=== PATIENT | female | born 1935 | race Two or more races ===

== ENCOUNTER → 2016-10-11 | Outpatient (CLI) | payer OTHER ==
[~2016-10-11] MED LIST: ALEN70TA55; AMLO10TA2; ASPI-231; ATORVASTATIN TAB 10MG; BENA40TA2; CLON0.1T; FURO20TA3; LEVO50TA7; METO-159
[2016-10-11 12:09] LABS: Basophils # (auto) 0 uL; Basophils % (auto) 0.3 % (0.0-2.0); Hematocrit 34.6 % (36.0-46.0); Hemoglobin 11.6 g/dL (12.2-16.2); Lymphocytes # (auto) 1.3 uL; Monocytes # (auto) 0.4 uL; Neutrophils # (auto) 4.3 uL; White Blood Cell 6.1 10^3/uL (4.4-10.8)
[2016-10-11 12:27] LABS: Eosinophils # (auto) 0.1 uL; Eosinophils % (auto) 0.9 % (0.0-7.0); Lymphocytes % (auto) 21.7 % (10.0-50.0); Mean Corpuscular Hemoglobin 29.3 pg (28.0-32.0); Mean Corpuscular Hgb Conc. 33.5 g/dL (32.0-36.0); Mean Corpuscular Volume 87.3 fL (80.0-100.0); Mean Platelet Volume 8.6 fL (7.4-10.4); Neutrophils % (auto) 70.1 % (37.0-80.0); Platelet Count (auto) 379 10^3/uL (140-450); Red Cell Distribution Width 16.5 % (11.6-16.0)
[2016-10-11 12:42] LABS: Albumin 2.9 g/dL (3.4-5.0); BUN/Creatinine Ratio 35.3; Bilirubin, Total 0.4 mg/dL (0.2-1.0); Calcium 8.1 mg/dL (8.5-10.1); Potassium 3.7 mmol/L (3.5-5.1); Total Protein 6.5 g/dL (6.4-8.2)
== END | disposition home or self-care (01) ==
LOC: LAB 10:57
PROVIDERS: ATTEND Internal Medicine
DX: D64.9 Anemia, unspecified (principal)
CPT/HCPCS: 36415; 80053; 85025

== ENCOUNTER → 2016-10-31 | Outpatient (CLI) | payer OTHER ==
[~2016-10-31] MED LIST changes: -ASPI-231; +ASPI-231 OR; +CLON0.1T PO; +CYAN100023 PO; -FURO20TA3; +FURO20TA3 OR; +HYDR25TA4 PO; +LEV50T PO; +LOPE1TAB9 PO; +MULTCAP45 PO; +POTA10TA51 PO
[2016-10-31 12:56] LABS: Basophils # (auto) 0 uL; Basophils % (auto) 0.3 % (0.0-2.0); Eosinophils # (auto) 0 uL; Eosinophils % (auto) 0.6 % (0.0-7.0); Hematocrit 31.6 % (36.0-46.0); Hemoglobin 10.6 g/dL (12.2-16.2); Lymphocytes % (auto) 14.2 % (10.0-50.0); Mean Corpuscular Hemoglobin 29.5 pg (28.0-32.0); Mean Corpuscular Hgb Conc. 33.5 g/dL (32.0-36.0); Mean Corpuscular Volume 88.1 fL (80.0-100.0); Monocytes # (auto) 0.5 uL; Neutrophils # (auto) 5.3 uL; Neutrophils % (auto) 77.9 % (37.0-80.0); Platelet Count (auto) 391 10^3/uL (140-450); Red Cell Distribution Width 16.4 % (11.6-16.0); White Blood Cell 6.8 10^3/uL (4.4-10.8)
[2016-10-31 13:18] LABS: INR 1.13 (0.9-1.15); Partial Thromboplastin Time 30.2 sec (22.64-33.71); Prothrombin Time 11.6 sec (9.37-12.3)
== END | disposition home or self-care (01) ==
LOC: LAB 11:53
PROVIDERS: ATTEND Internal Medicine Gastroenterology
DX: Z01.812 Encounter for preprocedural laboratory examination (principal)
CPT/HCPCS: 36415; 85025; 85610; 85730

== ENCOUNTER → 2016-11-03 | Day surgery (SDC) | payer OTHER ==
[~2016-11-03] VITALS: Ht 154.9 cm; Wt 52.2 kg
[~2016-11-03] MED LIST changes: -CLON0.1T; -LEVO50TA7; +LIDOCAINE VISCOUS 2% 15ML UD ONE; +SODIUM CHLORIDE LOCK 10 ML ONE; +diphenhdrAMINE HCL 50 MG/1 ML VL ONE
[2016-11-03] MEDS: fentaNYL CITRATE 100 MCG/2 ML VL ONE ×2 (10:23→10:31)
[2016-11-03] MEDS: MIDAZOLAM HCL 5 MG/ML-1ML VIAL ONE ×2 (10:23→10:31)
[2016-11-03 11:20] VITALS: BP 109/58
== END | disposition home or self-care (01) ==
LOC: GI 09:09
PROVIDERS: ATTEND Internal Medicine Gastroenterology
DX: K57.30 Diverticulosis of large intestine without perforation or abscess without bleeding (principal); K64.8 Other hemorrhoids; K29.60 Other gastritis without bleeding; I50.9 Heart failure, unspecified; J44.9 Chronic obstructive pulmonary disease, unspecified; J45.909 Unspecified asthma, uncomplicated; E11.9 Type 2 diabetes mellitus without complications; Z90.710 Acquired absence of both cervix and uterus; Z87.891 Personal history of nicotine dependence
CPT/HCPCS: 43239; 45378; J2250

== ENCOUNTER 2016-12-12 10:52 | Inpatient (IN) | payer OTHER ==
[~2016-12-12] VITALS: Ht 157.5 cm; Wt 54.3 kg
[~2016-12-12 10:52] MED LIST changes: -LIDOCAINE VISCOUS 2% 15ML UD ONE; -SODIUM CHLORIDE LOCK 10 ML ONE; -diphenhdrAMINE HCL 50 MG/1 ML VL ONE
[2016-12-12 12:00] LABS: Basophils # (auto) 0 uL; Basophils % (auto) 0.3 % (0.0-2.0); Eosinophils # (auto) 0 uL; Hematocrit 37.2 % (36.0-46.0); Hemoglobin 12.3 g/dL (12.2-16.2); Lymphocytes # (auto) 0.7 uL; Lymphocytes % (auto) 13.8 % (10.0-50.0); Mean Corpuscular Hemoglobin 29.2 pg (28.0-32.0); Mean Corpuscular Volume 88.4 fL (80.0-100.0); Mean Platelet Volume 7.9 fL (7.4-10.4); Monocytes # (auto) 0.3 uL; Monocytes % (auto) 5.4 % (0.0-12.0); Neutrophils # (auto) 4.4 uL; Neutrophils % (auto) 80.5 % (37.0-80.0); Platelet Count (auto) 339 10^3/uL (140-450); Red Cell Distribution Width 15.4 % (11.6-16.0); White Blood Cell 5.4 10^3/uL (4.4-10.8)
[2016-12-12] MEDS ORDERED: SODIUM CHLORIDE 0.9% 1,000 ML IV ONE (12:16)
[2016-12-12 12:40] LABS: Calcium 8.1 mg/dL (8.5-10.1)
[2016-12-12 12:48] LABS: Albumin 2.7 g/dL (3.4-5.0); BUN/Creatinine Ratio 29.4; Bilirubin, Total 0.6 mg/dL (0.2-1.0); Magnesium 2.8 mg/dL (1.6-2.6); Total Protein 5.9 g/dL (6.4-8.2)
[2016-12-12 13:04] LABS: Partial Thromboplastin Time 27.1 sec (22.64-33.71)
[2016-12-12 13:05] LABS: INR 1.36 (0.9-1.15); Prothrombin Time 14.7 sec (9.37-12.3)
[2016-12-12 13:35] LABS: Urine Bilirubin Negative (Negative); Urine Blood Negative /uL (Negative); Urine Color Yellow (Yellow); Urine Glucose Normal (Normal); Urine Ketone Negative (Negative); Urine Mucus FEW (None Seen); Urine Nitrite Negative (Negative); Urine RBC 6 /hpf (0 - 4); Urine Squamous Epithelial Cell FEW /hpf (<5); Urine Urobilinogen Normal (Negative)
[2016-12-12 13:40] LABS: B-Type Natriuretic Peptide 155.03 pg/mL (0-100); Temperature: 22.7 C (20.0-25.0)
[2016-12-12 13:59] LABS: Potassium 2.1 mmol/L (3.5-5.1)
[2016-12-12] MEDS ORDERED: cefTRIAXone 1GM/50ML D5W 50 ML IV ONE (14:00)
[2016-12-12] MEDS ORDERED: POTASSIUM CHL 20 Meq TABLET PO ONE ×2 (14:15→15:15)
[2016-12-12] MEDS ORDERED: FUROSEMIDE 20 MG/2 ML VIAL IV ONE (14:30)
[2016-12-12] MEDS ORDERED: ENOXAPARIN SOD 60 MG/0.6 ML SYRINGE SC ONE (14:30)
[2016-12-12] MEDS: POTASSIUM CHL 20MEQ/100ML 100 ML IV SCH ×2 (14:54→16:20)
[2016-12-12] MEDS ORDERED: NITROGLYCERIN 0.4 MG SL TAB SL PRN (15:15)
[2016-12-12] MEDS ORDERED: MORPHINE SULF INJ 2 MG/ML SYRINGE 1ML IV PRN (15:15)
[2016-12-12] MEDS: SOD CHL 0.9%/ KCL 20MEQ 1,000 ML IV SCH (15:40)
[2016-12-12 18:53] VITALS: BP 110/66
[2016-12-12 20:00] VITALS: BP 111/61
[2016-12-12] MEDS: ATORVASTATIN 20 MG TAB PO SCH (21:23)
[2016-12-12 21:41] VITALS: BP 111/61
[2016-12-13] MEDS: SOD CHL 0.9%/ KCL 20MEQ 1,000 ML IV SCH (03:29)
[2016-12-13 04:44] VITALS: BP 105/56
[2016-12-13] MEDS: LEVOTHYROXINE SODIUM 88 MCG TAB PO SCH (06:09)
[2016-12-13 06:26] LABS: Basophils # (auto) 0 uL; Basophils % (auto) 0.3 % (0.0-2.0); Eosinophils # (auto) 0 uL; Eosinophils % (auto) 0.8 % (0.0-7.0); Hematocrit 29.8 % (36.0-46.0); Lymphocytes % (auto) 22.5 % (10.0-50.0); Mean Corpuscular Hemoglobin 29.5 pg (28.0-32.0); Mean Corpuscular Hgb Conc. 33.4 g/dL (32.0-36.0); Mean Corpuscular Volume 88.3 fL (80.0-100.0); Mean Platelet Volume 7.9 fL (7.4-10.4); Monocytes # (auto) 0.4 uL; Monocytes % (auto) 9.8 % (0.0-12.0); Neutrophils # (auto) 2.9 uL; Neutrophils % (auto) 66.6 % (37.0-80.0); Platelet Count (auto) 249 10^3/uL (140-450); White Blood Cell 4.3 10^3/uL (4.4-10.8)
[2016-12-13 06:50] LABS: Calcium 7.1 mg/dL (8.5-10.1); Potassium 3.3 mmol/L (3.5-5.1)
[2016-12-13 06:58] LABS: BUN/Creatinine Ratio 31.4
[2016-12-13 08:10] VITALS: BP 119/60
[2016-12-13] MEDS: cefTRIAXone 1GM/50ML D5W 50 ML IV SCH (08:44)
[2016-12-13] MEDS: ASPirin 81 mg TAB PO SCH (09:13)
[2016-12-13 09:21] VITALS: BP 114/60
[2016-12-13 12:30] VITALS: BP 121/59
[2016-12-13] MEDS: PANTOPRAZOLE 40 MG TAB PO SCH ×2 (15:04→21:28)
[2016-12-13] MEDS: POTASSIUM CHLORIDE 20 MEQ in D5W 5% 1,000 ML IV SCH (15:10)
[2016-12-13 17:14] VITALS: BP 152/65
[2016-12-13] MEDS: ATORVASTATIN 20 MG TAB PO SCH (21:28)
[2016-12-13 22:00] VITALS: BP 114/65
[2016-12-14] VITALS (7 sets, daily range): BP systolic 112–137; BP diastolic 60–74
[2016-12-14] MEDS: POTASSIUM CHLORIDE 20 MEQ in D5W 5% 1,000 ML IV SCH ×2 (03:38→16:59)
[2016-12-14] MEDS: LEVOTHYROXINE SODIUM 88 MCG TAB PO SCH (06:05)
[2016-12-14 06:26] LABS: BUN/Creatinine Ratio 28.8; Calcium 6.7 mg/dL (8.5-10.1); Potassium 3.4 mmol/L (3.5-5.1)
[2016-12-14] MEDS: cefTRIAXone 1GM/50ML D5W 50 ML IV SCH (08:05)
[2016-12-14] MEDS ORDERED: POTASSIUM CHL 20 Meq TABLET PO ONE (09:00)
[2016-12-14] MEDS: ASPirin 81 mg TAB PO SCH (09:30)
[2016-12-14] MEDS: PANTOPRAZOLE 40 MG TAB PO SCH ×2 (09:30→21:53)
[2016-12-14] MEDS: BOOST PLUS 8 ounce PO SCH (19:26)
[2016-12-14] MEDS: ATORVASTATIN 20 MG TAB PO SCH (21:53)
[2016-12-15 05:08] VITALS: BP 119/63
[2016-12-15] MEDS: POTASSIUM CHLORIDE 20 MEQ in D5W 5% 1,000 ML IV SCH (06:02)
[2016-12-15] MEDS: LEVOTHYROXINE SODIUM 88 MCG TAB PO SCH (06:18)
[2016-12-15 09:00] VITALS: BP 122/71
[2016-12-15] MEDS: BOOST PLUS 8 ounce PO SCH ×2 (09:16→12:00)
[2016-12-15] MEDS: cefTRIAXone 1GM/50ML D5W 50 ML IV SCH (09:16)
[2016-12-15] MEDS: ASPirin 81 mg TAB PO SCH (09:16)
[2016-12-15] MEDS: PANTOPRAZOLE 40 MG TAB PO SCH (09:16)
[2016-12-15] MEDS ORDERED: PANT40T PO (09:35)
[2016-12-15 10:35] LABS: BUN/Creatinine Ratio 19.2; Calcium 6.8 mg/dL (8.5-10.1); Potassium 4.5 mmol/L (3.5-5.1)
[2016-12-15 13:00] VITALS: BP 129/75
[2016-12-15] MEDS ORDERED: BOOST 8 ounces PO SCH (14:00)
[2016-12-15 14:11] VITALS: BP 122/71
[2016-12-15 15:29] VITALS: BP 102/75
== END 2016-12-15 17:30 | disposition home or self-care (01) | DRG 640 ==
LOC: ER 10:52 → EDUNIT# 10:53 → TELE 10:53 → TELE-WESTW 18:41
PROVIDERS: ADMIT Internal Medicine; ATTEND Internal Medicine
DX: E87.6 Hypokalemia (principal); I50.43 Acute on chronic combined systolic (congestive) and diastolic (congestive) heart failure; E43 Unspecified severe protein-calorie malnutrition; N17.9 Acute kidney failure, unspecified; N30.00 Acute cystitis without hematuria; I13.0 Hypertensive heart and chronic kidney disease with heart failure and stage 1 through stage 4 chronic kidney disease, or unspecified chronic kidney disease; E11.9 Type 2 diabetes mellitus without complications; R74.8 Abnormal levels of other serum enzymes; R63.4 Abnormal weight loss; I11.0 Hypertensive heart disease with heart failure; E89.0 Postprocedural hypothyroidism; J45.909 Unspecified asthma, uncomplicated; E11.22 Type 2 diabetes mellitus with diabetic chronic kidney disease; E87.0 Hyperosmolality and hypernatremia; K52.9 Noninfective gastroenteritis and colitis, unspecified; N18.9 Chronic kidney disease, unspecified; E86.0 Dehydration; R62.7 Adult failure to thrive; F32.9 Major depressive disorder, single episode, unspecified; B96.81 Helicobacter pylori [H. pylori] as the cause of diseases classified elsewhere; Z68.22 Body mass index [BMI] 22.0-22.9, adult; Z82.49 Family history of ischemic heart disease and other diseases of the circulatory system; Z88.1 Allergy status to other antibiotic agents; Z79.899 Other long term (current) drug therapy
CPT/HCPCS: 36415; 51702; 71010; 74176; 80048; 80053; 81001; 83036; 83605; 83615; 83735; 83880; 84439; 84443; 84481; 84484; 85025; 85610; 85730; 87040; 87045; 87086; 87493; 87899; 93005; 93306; 96361; 96365; 96372; 96375; 97116; 97530; J0696; J3480

== ENCOUNTER → 2017-01-09 | Outpatient (CLI) | payer OTHER ==
[~2017-01-09] MED LIST changes: +PANT40T PO
== END | disposition home or self-care (01) ==
LOC: LAB 12:56
PROVIDERS: ATTEND Internal Medicine Gastroenterology
DX: A04.8 Other specified bacterial intestinal infections (principal)

== ENCOUNTER 2017-01-31 10:02 | Inpatient (IN) | payer OTHER ==
[~2017-01-31] VITALS: Ht 162.6 cm; Wt 49.2 kg
[~2017-01-31 10:02] MED LIST changes: -BENA40TA2; +BENA40TA7
[2017-01-31 11:06] LABS: Basophils # (auto) 0 uL; Basophils % (auto) 0.1 % (0.0-2.0); Eosinophils # (auto) 0 uL; Eosinophils % (auto) 0.1 % (0.0-7.0); Hematocrit 32.8 % (36.0-46.0); Lymphocytes # (auto) 0.4 uL; Mean Corpuscular Hemoglobin 29.5 pg (28.0-32.0); Mean Corpuscular Hgb Conc. 33.6 g/dL (32.0-36.0); Mean Corpuscular Volume 87.8 fL (80.0-100.0); Mean Platelet Volume 7.8 fL (7.4-10.4); Monocytes # (auto) 0.2 uL; Monocytes % (auto) 5.4 % (0.0-12.0); Neutrophils # (auto) 2.8 uL; Neutrophils % (auto) 81.4 % (37.0-80.0); Platelet Count (auto) 340 10^3/uL (140-450); Red Cell Distribution Width 14.5 % (11.6-16.0); White Blood Cell 3.4 10^3/uL (4.4-10.8)
[2017-01-31] MEDS ORDERED: DIPHENOXYLATE W/ATROPINE 2.5 MG TAB PO ONE (11:30)
[2017-01-31] MEDS ORDERED: ONDANSETRON HCL 4 MG/2 ML VIAL IV ONE (11:30)
[2017-01-31 11:45] LABS: Albumin 2.3 g/dL (3.4-5.0); BUN/Creatinine Ratio 25.5; Bilirubin, Total 0.4 mg/dL (0.2-1.0); Calcium 7.3 mg/dL (8.5-10.1); Magnesium 2.6 mg/dL (1.6-2.6); Potassium 3.5 mmol/L (3.5-5.1); Total Protein 5.2 g/dL (6.4-8.2)
[2017-01-31] MEDS ORDERED: SODIUM CHLORIDE 0.9% 1,000 ML IV ONE (12:31)
[2017-01-31] MEDS ORDERED: ENOXAPARIN SOD 60 MG/0.6 ML SYRINGE SC ONE (12:45)
[2017-01-31 13:38] LABS: B-Type Natriuretic Peptide 183.99 pg/mL (0-100)
[2017-01-31 14:40] LABS: Temperature: 22.3 C (20.0-25.0)
[2017-01-31] MEDS ORDERED: cefTRIAXone 1GM/50ML D5W 50 ML IV ONE (14:45)
[2017-01-31] MEDS ORDERED: MORPHINE SULF INJ 2 MG/ML SYRINGE 1ML IV PRN (15:00)
[2017-01-31] MEDS ORDERED: ONDANSETRON HCL 4 MG/2 ML VIAL IV PRN (15:00)
[2017-01-31] MEDS ORDERED: TEMAZEPAM 15 MG CAP PO PRN (15:00)
[2017-01-31] MEDS ORDERED: metroNIDAZOLE 500MG/100ML 100 ML IV ONE (15:30)
[2017-01-31] MEDS: PANTOPRAZOLE SODIUM 40 MG/10 ML VIAL IV SCH ×2 (15:42→22:52)
[2017-01-31] MEDS: SODIUM CHLORIDE 0.9% 1,000 ML IV SCH ×2 (15:43→23:59)
[2017-01-31] MEDS: FAMOTIDINE 20 MG TAB PO SCH ×2 (15:43→22:52)
[2017-01-31 15:49] LABS: INR 1.31 (0.9-1.15); Prothrombin Time 14.3 sec (9.37-12.3)
[2017-01-31] MEDS: InsuLIN REG 1unit/0.01ml Soln (100units/ml) SC SCH ×2 (17:00→22:00)
[2017-01-31] MEDS: ACCU-CHEK COMFORT CURVE STRIP VI SCH ×2 (17:24→22:53)
[2017-01-31] MEDS: Boost Glucose Control 8 Ounces PO SCH ×2 (18:04→22:52)
[2017-01-31 19:40] VITALS: BP 109/57
[2017-01-31 20:00] VITALS: BP 109/57
[2017-01-31 22:00] VITALS: BP 109/57
[2017-01-31] MEDS: CALCIUM CARB 500 MG CHEW TAB PO SCH (22:52)
[2017-01-31] MEDS: metroNIDAZOLE 500MG/100ML 100 ML IV SCH (22:53)
[2017-02-01] MEDS: DEXTROSE (50%) 50ML SYRG IV PRN ×2 (00:06→06:58)
[2017-02-01 05:07] VITALS: BP 98/50
[2017-02-01 06:10] LABS: Basophils # (auto) 0 uL; Basophils % (auto) 0.1 % (0.0-2.0); Eosinophils # (auto) 0 uL; Eosinophils % (auto) 0.4 % (0.0-7.0); Hematocrit 29.6 % (36.0-46.0); Hemoglobin 9.9 g/dL (12.2-16.2); Lymphocytes # (auto) 0.9 uL; Lymphocytes % (auto) 25.5 % (10.0-50.0); Mean Corpuscular Hemoglobin 29.4 pg (28.0-32.0); Mean Corpuscular Hgb Conc. 33.5 g/dL (32.0-36.0); Mean Corpuscular Volume 87.7 fL (80.0-100.0); Mean Platelet Volume 7.8 fL (7.4-10.4); Monocytes # (auto) 0.3 uL; Monocytes % (auto) 8.2 % (0.0-12.0); Neutrophils # (auto) 2.3 uL; Neutrophils % (auto) 65.8 % (37.0-80.0); Platelet Count (auto) 284 10^3/uL (140-450); Red Cell Distribution Width 14.4 % (11.6-16.0); White Blood Cell 3.4 10^3/uL (4.4-10.8)
[2017-02-01 06:41] LABS: Albumin 1.9 g/dL (3.4-5.0); Calcium 6.7 mg/dL (8.5-10.1)
[2017-02-01] MEDS: Boost Glucose Control 8 Ounces PO SCH ×4 (06:43→21:46)
[2017-02-01] MEDS: metroNIDAZOLE 500MG/100ML 100 ML IV SCH (06:43)
[2017-02-01] MEDS: LEVOTHYROXINE SODIUM 25 MCG TAB PO SCH (06:43)
[2017-02-01] MEDS: ACCU-CHEK COMFORT CURVE STRIP VI SCH ×4 (06:44→21:46)
[2017-02-01] MEDS: InsuLIN REG 1unit/0.01ml Soln (100units/ml) SC SCH ×4 (06:52→21:46)
[2017-02-01 07:06] LABS: Bilirubin, Total 0.2 mg/dL (0.2-1.0); Total Protein 4.5 g/dL (6.4-8.2)
[2017-02-01] MEDS: SODIUM CHLORIDE 0.9% 1,000 ML IV SCH (07:27)
[2017-02-01 08:00] VITALS: BP 104/59
[2017-02-01] MEDS ORDERED: PANTOPRAZOLE SODIUM 40 MG/10 ML VIAL IV SCH (10:00)
[2017-02-01] MEDS: CALCIUM CARB 500 MG CHEW TAB PO SCH ×2 (10:06→21:46)
[2017-02-01] MEDS: cefTRIAXone 1GM/50ML D5W 50 ML IV SCH (10:07)
[2017-02-01] MEDS: PANTOPRAZOLE SODIUM 40 MG/10 ML VIAL IV SCH ×2 (10:07→21:46)
[2017-02-01] MEDS: MULTIPLE VITAMIN TAB PO SCH (10:09)
[2017-02-01] MEDS: FERROUS SULFATE 325 MG TAB PO SCH (10:09)
[2017-02-01] MEDS: CYANOCOBALAMIN 500 MCG TAB PO SCH (10:09)
[2017-02-01 12:20] LABS: Urine Bilirubin Negative (Negative); Urine Blood TRACE /uL (Negative); Urine Color Yellow (Yellow); Urine Glucose Normal (Normal); Urine Ketone Negative (Negative); Urine Nitrite Negative (Negative); Urine RBC 2 /hpf (0 - 4); Urine Squamous Epithelial Cell FEW /hpf (<5); Urine Urobilinogen Normal (Negative); Urine pH 5.5 (5.0-8.0)
[2017-02-01] MEDS: SODIUM BICARBONATE 50ML VIAL 50 ML in D5W/SOD CHL 0.45%/KCL 20MEQ 1,000 ML IV SCH (12:20)
[2017-02-01 13:00] VITALS: BP 111/61
[2017-02-01 17:07] VITALS: BP 104/52
[2017-02-01 20:00] VITALS: BP 106/62
[2017-02-01 22:00] VITALS: BP 106/62
[2017-02-02] MEDS: SODIUM BICARBONATE 50ML VIAL 50 ML in D5W/SOD CHL 0.45%/KCL 20MEQ 1,000 ML IV SCH ×4 (03:22→22:44)
[2017-02-02 05:00] VITALS: BP 112/57
[2017-02-02] MEDS: Boost Glucose Control 8 Ounces PO SCH (05:58)
[2017-02-02] MEDS: InsuLIN REG 1unit/0.01ml Soln (100units/ml) SC SCH ×4 (06:35→22:05)
[2017-02-02] MEDS: LEVOTHYROXINE SODIUM 25 MCG TAB PO SCH (06:35)
[2017-02-02] MEDS: ACCU-CHEK COMFORT CURVE STRIP VI SCH ×4 (06:35→22:05)
[2017-02-02 06:38] LABS: Basophils # (auto) 0 uL; Basophils % (auto) 0.3 % (0.0-2.0); CONDITION Y; Eosinophils # (auto) 0 uL; Eosinophils % (auto) 0.6 % (0.0-7.0); Hematocrit 26.7 % (36.0-46.0); Hemoglobin 9.3 g/dL (12.2-16.2); Lymphocytes # (auto) 0.9 uL; Lymphocytes % (auto) 27.3 % (10.0-50.0); Mean Corpuscular Hemoglobin 30.4 pg (28.0-32.0); Mean Corpuscular Hgb Conc. 34.9 g/dL (32.0-36.0); Mean Corpuscular Volume 86.9 fL (80.0-100.0); Mean Platelet Volume 7.5 fL (7.4-10.4); Monocytes # (auto) 0.3 uL; Monocytes % (auto) 7.8 % (0.0-12.0); Neutrophils # (auto) 2.1 uL; Platelet Count (auto) 255 10^3/uL (140-450); Red Cell Distribution Width 14.7 % (11.6-16.0); White Blood Cell 3.3 10^3/uL (4.4-10.8)
[2017-02-02 07:36] LABS: Albumin 1.8 g/dL (3.4-5.0); Calcium 6.5 mg/dL (8.5-10.1)
[2017-02-02 07:38] LABS: BUN/Creatinine Ratio 25.8
[2017-02-02 07:41] LABS: Bilirubin, Total 0.2 mg/dL (0.2-1.0); Total Protein 4.2 g/dL (6.4-8.2)
[2017-02-02 09:00] VITALS: BP 125/67
[2017-02-02] MEDS ORDERED: POTASSIUM CHLORIDE 20 MEQ, LIDOCAINE 1% (LOCAL ANESTH.) 2 ML in SODIUM CHL 0.9% 100 ML IV ONE (09:30)
[2017-02-02] MEDS: PANTOPRAZOLE SODIUM 40 MG/10 ML VIAL IV SCH ×2 (10:27→22:05)
[2017-02-02] MEDS: cefTRIAXone 1GM/50ML D5W 50 ML IV SCH (10:27)
[2017-02-02] MEDS: FERROUS SULFATE 325 MG TAB PO SCH (10:28)
[2017-02-02] MEDS: CALCIUM CARB 500 MG CHEW TAB PO SCH ×2 (10:28→22:05)
[2017-02-02] MEDS: MULTIPLE VITAMIN TAB PO SCH (10:28)
[2017-02-02] MEDS ORDERED: METOCLOPRAMIDE HCL 5MG/ml INJ 2ml VIAL IV SCH ×2 (10:45→14:00)
[2017-02-02] MEDS: CYANOCOBALAMIN 500 MCG TAB PO SCH (10:46)
[2017-02-02] MEDS ORDERED: Boost Glucose Control 8 Ounces PO SCH (12:00)
[2017-02-02] MEDS: Boost Breeze 8 Ounces PO SCH ×2 (12:23→18:46)
[2017-02-02 13:00] VITALS: BP 104/66
[2017-02-02] MEDS: SODIUM CHL 0.9% IV SCH ×2 (13:00→14:00)
[2017-02-02] MEDS: METOCLOPRAMIDE IV SCH ×2 (13:00→14:00)
[2017-02-02] MEDS ORDERED: POTASSIUM CHL 20 Meq TABLET PO ONE (13:30)
[2017-02-02] MEDS ORDERED: METOCLOPRAMIDE HCL 10 MG TAB PO PRN (16:30)
[2017-02-02] MEDS: METOCLOPRAMIDE HCL 10 MG TAB PO SCH (17:24)
[2017-02-02] MEDS: PRO-STAT 64 30ML PO SCH (18:46)
[2017-02-02 20:00] VITALS: BP 101/61
[2017-02-02 22:00] VITALS: BP 101/61
[2017-02-03] VITALS (7 sets, daily range): BP systolic 103–132; BP diastolic 58–74
[2017-02-03] MEDS: ACETAMINOPHEN 325 MG TAB PO PRN (01:01)
[2017-02-03] MEDS: LEVOTHYROXINE SODIUM 25 MCG TAB PO SCH (06:39)
[2017-02-03] MEDS: METOCLOPRAMIDE HCL 10 MG TAB PO SCH (06:40)
[2017-02-03] MEDS: InsuLIN REG 1unit/0.01ml Soln (100units/ml) SC SCH ×4 (06:40→21:45)
[2017-02-03] MEDS: ACCU-CHEK COMFORT CURVE STRIP VI SCH ×4 (06:40→21:45)
[2017-02-03 07:18] LABS: BUN/Creatinine Ratio 26.4; Bilirubin, Total 0.3 mg/dL (0.2-1.0); Calcium 6.7 mg/dL (8.5-10.1); Total Protein 4.5 g/dL (6.4-8.2)
[2017-02-03] MEDS: PRO-STAT 64 30ML PO SCH ×2 (08:00→18:00)
[2017-02-03] MEDS: Boost Breeze 8 Ounces PO SCH ×3 (08:00→18:00)
[2017-02-03] MEDS: cefTRIAXone 1GM/50ML D5W 50 ML IV SCH (09:26)
[2017-02-03] MEDS: MULTIPLE VITAMIN TAB PO SCH (09:27)
[2017-02-03] MEDS: FERROUS SULFATE 325 MG TAB PO SCH (09:27)
[2017-02-03] MEDS: CALCIUM CARB 500 MG CHEW TAB PO SCH ×2 (09:27→21:45)
[2017-02-03] MEDS: PANTOPRAZOLE SODIUM 40 MG/10 ML VIAL IV SCH ×2 (09:27→21:45)
[2017-02-03] MEDS: CYANOCOBALAMIN 500 MCG TAB PO SCH (09:38)
[2017-02-03] MEDS: ERYTHROMYCIN LACTOBIONATE 250 MG in SODIUM CHL 0.9% 100 ML IV SCH (12:01)
[2017-02-03] MEDS: SODIUM BICARBONATE 50ML VIAL 50 ML in D5W/SOD CHL 0.45%/KCL 20MEQ 1,000 ML IV SCH ×2 (13:25→23:27)
[2017-02-04] MEDS: ACETAMINOPHEN 325 MG TAB PO PRN (01:25)
[2017-02-04 04:06] LABS: Endomysial IgA Antibody Negative (Negative)
[2017-02-04 05:00] VITALS: BP 108/66
[2017-02-04 06:08] LABS: Basophils # (auto) 0 uL; Basophils % (auto) 0.1 % (0.0-2.0); CONDITION AutoValidated; DEFINITIVE SEE PRINTOUT; Eosinophils # (auto) 0 uL; Eosinophils % (auto) 0.3 % (0.0-7.0); Hematocrit 24.9 % (36.0-46.0); Hemoglobin 8.4 g/dL (12.2-16.2); Lymphocytes # (auto) 0.6 uL; Lymphocytes % (auto) 11.4 % (10.0-50.0); Mean Corpuscular Hemoglobin 29.5 pg (28.0-32.0); Mean Corpuscular Hgb Conc. 33.8 g/dL (32.0-36.0); Mean Corpuscular Volume 87.2 fL (80.0-100.0); Mean Platelet Volume 7.8 fL (7.4-10.4); Monocytes # (auto) 0.2 uL; Monocytes % (auto) 4.2 % (0.0-12.0); Neutrophils # (auto) 4.1 uL; Platelet Count (auto) 197 10^3/uL (140-450); White Blood Cell 4.9 10^3/uL (4.4-10.8)
[2017-02-04] MEDS: LEVOTHYROXINE SODIUM 25 MCG TAB PO SCH (06:47)
[2017-02-04] MEDS: InsuLIN REG 1unit/0.01ml Soln (100units/ml) SC SCH ×4 (06:47→22:00)
[2017-02-04] MEDS: ACCU-CHEK COMFORT CURVE STRIP VI SCH ×4 (06:47→22:00)
[2017-02-04 07:19] LABS: Albumin 1.5 g/dL (3.4-5.0); BUN/Creatinine Ratio 23.1; Calcium 6.4 mg/dL (8.5-10.1); Potassium 4.2 mmol/L (3.5-5.1)
[2017-02-04 07:22] LABS: Bilirubin, Total 0.3 mg/dL (0.2-1.0); Total Protein 3.8 g/dL (6.4-8.2)
[2017-02-04] MEDS: Boost Breeze 8 Ounces PO SCH ×3 (08:00→18:00)
[2017-02-04] MEDS: PRO-STAT 64 30ML PO SCH ×2 (08:00→18:00)
[2017-02-04] MEDS: SODIUM BICARBONATE 50ML VIAL 50 ML in D5W/SOD CHL 0.45%/KCL 20MEQ 1,000 ML IV SCH ×2 (08:23→22:34)
[2017-02-04 09:00] VITALS: BP 114/74
[2017-02-04] MEDS: PANTOPRAZOLE SODIUM 40 MG/10 ML VIAL IV SCH ×3 (10:00→21:51)
[2017-02-04] MEDS: MULTIPLE VITAMIN TAB PO SCH (10:00)
[2017-02-04] MEDS: CALCIUM CARB 500 MG CHEW TAB PO SCH ×2 (10:00→21:50)
[2017-02-04] MEDS: FERROUS SULFATE 325 MG TAB PO SCH (10:00)
[2017-02-04] MEDS: CYANOCOBALAMIN 500 MCG TAB PO SCH (10:00)
[2017-02-04] MEDS: ERYTHROMYCIN LACTOBIONATE 250 MG in SODIUM CHL 0.9% 100 ML IV SCH (12:06)
[2017-02-04 13:00] VITALS: BP 122/65
[2017-02-04 16:48] VITALS: BP 115/66
[2017-02-04 20:06] LABS: Vitamin D 25-Hydroxy 38 ng/mL (.); Vitamin D-2 25-Hydroxy <1.0 ng/mL (.)
[2017-02-04 22:00] VITALS: BP 115/70
[2017-02-05 06:08] VITALS: BP 109/72
[2017-02-05 06:28] LABS: Potassium 4.4 mmol/L (3.5-5.1)
[2017-02-05 06:31] LABS: Albumin 1.6 g/dL (3.4-5.0); BUN/Creatinine Ratio 23.1; Calcium 6.8 mg/dL (8.5-10.1)
[2017-02-05] MEDS: ACCU-CHEK COMFORT CURVE STRIP VI SCH ×4 (06:36→22:28)
[2017-02-05] MEDS: InsuLIN REG 1unit/0.01ml Soln (100units/ml) SC SCH ×4 (06:36→22:00)
[2017-02-05] MEDS: LEVOTHYROXINE SODIUM 25 MCG TAB PO SCH (06:36)
[2017-02-05 06:53] LABS: Bilirubin, Total 0.2 mg/dL (0.2-1.0); Total Protein 4.1 g/dL (6.4-8.2)
[2017-02-05 08:00] VITALS: BP 134/54
[2017-02-05] MEDS: PRO-STAT 64 30ML PO SCH ×2 (08:00→18:00)
[2017-02-05] MEDS: Boost Breeze 8 Ounces PO SCH (08:00)
[2017-02-05 09:00] VITALS: BP 96/54
[2017-02-05] MEDS: ERYTHROMYCIN LACTOBIONATE 250 MG in SODIUM CHL 0.9% 100 ML IV SCH (10:00)
[2017-02-05] MEDS: MULTIPLE VITAMIN TAB PO SCH (11:04)
[2017-02-05] MEDS: FERROUS SULFATE 325 MG TAB PO SCH (11:04)
[2017-02-05] MEDS: PANTOPRAZOLE SODIUM 40 MG/10 ML VIAL IV SCH ×2 (11:04→21:25)
[2017-02-05] MEDS: HYDROcodone-ACET 5/325MG TAB PO PRN (11:04)
[2017-02-05] MEDS: CALCIUM CARB 500 MG CHEW TAB PO SCH ×2 (11:05→21:25)
[2017-02-05] MEDS: SODIUM BICARBONATE 50ML VIAL 50 ML in D5W/SOD CHL 0.45%/KCL 20MEQ 1,000 ML IV SCH (12:23)
[2017-02-05 13:00] VITALS: BP 119/73
[2017-02-05] MEDS: CYANOCOBALAMIN 500 MCG TAB PO SCH (14:35)
[2017-02-05] MEDS ORDERED: SODIUM CHLORIDE 0.9% 1,000 ML IV SCH (15:30)
[2017-02-05 17:00] VITALS: BP 121/72
[2017-02-05] MEDS: BOOST PLUS 8 ounce PO SCH (18:00)
[2017-02-05 22:00] VITALS: BP 101/56
[2017-02-06 05:00] VITALS: BP 118/57
[2017-02-06 06:36] LABS: Hematocrit 27.4 % (36.0-46.0); Hemoglobin 9.1 g/dL (12.2-16.2)
[2017-02-06] MEDS: InsuLIN REG 1unit/0.01ml Soln (100units/ml) SC SCH ×4 (06:37→22:00)
[2017-02-06] MEDS: ACCU-CHEK COMFORT CURVE STRIP VI SCH ×4 (06:37→22:00)
[2017-02-06] MEDS: LEVOTHYROXINE SODIUM 25 MCG TAB PO SCH (06:38)
[2017-02-06 07:02] LABS: BUN/Creatinine Ratio 27.8; Potassium 4.2 mmol/L (3.5-5.1)
[2017-02-06 08:00] VITALS: BP 105/59
[2017-02-06] MEDS: BOOST PLUS 8 ounce PO SCH ×3 (08:00→18:00)
[2017-02-06] MEDS: PRO-STAT 64 30ML PO SCH ×2 (08:00→18:00)
[2017-02-06 08:57] VITALS: BP 105/59
[2017-02-06] MEDS: PANTOPRAZOLE SODIUM 40 MG/10 ML VIAL IV SCH ×2 (10:17→21:19)
[2017-02-06] MEDS: CALCIUM CARB 500 MG CHEW TAB PO SCH ×2 (10:18→21:19)
[2017-02-06] MEDS: FERROUS SULFATE 325 MG TAB PO SCH (10:18)
[2017-02-06] MEDS: MULTIPLE VITAMIN TAB PO SCH (10:18)
[2017-02-06] MEDS: CYANOCOBALAMIN 500 MCG TAB PO SCH (10:18)
[2017-02-06] MEDS: SOD CHL 0.45% 1,000 ML IV SCH (12:15)
[2017-02-06 12:36] VITALS: BP 108/64
[2017-02-06 17:00] VITALS: BP 143/80
[2017-02-06 22:01] VITALS: BP 127/78
[2017-02-07] MEDS: SOD CHL 0.45% 1,000 ML IV SCH (01:35)
[2017-02-07 05:17] VITALS: BP 123/71
[2017-02-07] MEDS: InsuLIN REG 1unit/0.01ml Soln (100units/ml) SC SCH ×4 (06:30→22:07)
[2017-02-07] MEDS: LEVOTHYROXINE SODIUM 25 MCG TAB PO SCH (06:30)
[2017-02-07] MEDS: ACCU-CHEK COMFORT CURVE STRIP VI SCH ×4 (06:30→22:07)
[2017-02-07 07:27] LABS: BUN/Creatinine Ratio 26.5; Calcium 7.1 mg/dL (8.5-10.1); Potassium 3.6 mmol/L (3.5-5.1)
[2017-02-07] MEDS: FERROUS SULFATE 325 MG TAB PO SCH (09:39)
[2017-02-07] MEDS: CALCIUM CARB 500 MG CHEW TAB PO SCH ×2 (09:39→21:23)
[2017-02-07] MEDS: PANTOPRAZOLE SODIUM 40 MG/10 ML VIAL IV SCH (09:39)
[2017-02-07] MEDS: CYANOCOBALAMIN 500 MCG TAB PO SCH (09:40)
[2017-02-07] MEDS: MULTIPLE VITAMIN TAB PO SCH (09:40)
[2017-02-07] MEDS: PRO-STAT 64 30ML PO SCH ×2 (09:42→18:00)
[2017-02-07] MEDS: BOOST PLUS 8 ounce PO SCH ×3 (09:42→18:00)
[2017-02-07] MEDS ORDERED: DONNATAL 5ml ORAL Elix (BELLADONNA ALK-PHENOBARB) PO PRN (10:45)
[2017-02-07] MEDS ORDERED: ENOXAPARIN SOD 40 MG/0.4 ML SYRINGE SC ONE (10:45)
[2017-02-07 12:47] VITALS: BP 126/70
[2017-02-07 16:47] VITALS: BP 121/76
[2017-02-07] MEDS: HYDROcodone-ACET 5/325MG TAB PO PRN (20:00)
[2017-02-07 22:00] VITALS: BP 108/58
[2017-02-08 04:46] VITALS: BP 108/63
[2017-02-08] MEDS: ACCU-CHEK COMFORT CURVE STRIP VI SCH ×2 (06:05→11:47)
[2017-02-08] MEDS: InsuLIN REG 1unit/0.01ml Soln (100units/ml) SC SCH ×2 (06:05→11:30)
[2017-02-08] MEDS: LEVOTHYROXINE SODIUM 25 MCG TAB PO SCH (06:05)
[2017-02-08 09:00] VITALS: BP 116/67
[2017-02-08] MEDS ORDERED: BELLELX2 PO (09:08)
[2017-02-08] MEDS ORDERED: PANT40T PO (09:08)
[2017-02-08] MEDS ORDERED: MULTTAB99 PO (09:08)
[2017-02-08] MEDS ORDERED: FER325T PO (09:08)
[2017-02-08] MEDS ORDERED: POTASSIUM CHL 20 Meq TABLET PO ONE (09:15)
[2017-02-08] MEDS ORDERED: FUROSEMIDE 40 MG/4 ML VIAL IV ONE (09:15)
[2017-02-08] MEDS: CALCIUM CARB 500 MG CHEW TAB PO SCH (09:39)
[2017-02-08] MEDS: MULTIPLE VITAMIN TAB PO SCH (09:40)
[2017-02-08] MEDS: FERROUS SULFATE 325 MG TAB PO SCH (09:40)
[2017-02-08] MEDS: ALBUMIN 25% 100 ML IV SCH ×2 (09:40→11:46)
[2017-02-08] MEDS: CYANOCOBALAMIN 500 MCG TAB PO SCH (09:40)
[2017-02-08] MEDS: BOOST PLUS 8 ounce PO SCH ×2 (09:41→12:00)
[2017-02-08] MEDS: PRO-STAT 64 30ML PO SCH (09:41)
[2017-02-08] MEDS ORDERED: PANTOPRAZOLE 40 MG TAB PO SCH (10:00)
[2017-02-08] MEDS ORDERED: ENOXAPARIN SOD 40 MG/0.4 ML SYRINGE SC SCH (10:00)
[2017-02-08 13:00] VITALS: BP 121/65
== END 2017-02-08 15:50 | disposition home or self-care (01) | DRG 73 ==
LOC: ER 10:02 → EDBD 10:02 → OVERFLOW 10:03 → WEST WING 19:40 → TELE-WESTW 02-03 17:22 → WEST WING 02-03 20:31
PROVIDERS: ADMIT Internal Medicine; ATTEND Internal Medicine
DX: E11.43 Type 2 diabetes mellitus with diabetic autonomic (poly)neuropathy (principal); E43 Unspecified severe protein-calorie malnutrition; N17.0 Acute kidney failure with tubular necrosis; J96.90 Respiratory failure, unspecified, unspecified whether with hypoxia or hypercapnia; I13.0 Hypertensive heart and chronic kidney disease with heart failure and stage 1 through stage 4 chronic kidney disease, or unspecified chronic kidney disease; N18.4 Chronic kidney disease, stage 4 (severe); E87.1 Hypo-osmolality and hyponatremia; K92.2 Gastrointestinal hemorrhage, unspecified; N39.0 Urinary tract infection, site not specified; E87.2 Acidosis; Z68.1 Body mass index [BMI] 19.9 or less, adult; E03.9 Hypothyroidism, unspecified; E11.21 Type 2 diabetes mellitus with diabetic nephropathy; E78.5 Hyperlipidemia, unspecified; E11.22 Type 2 diabetes mellitus with diabetic chronic kidney disease; K82.8 Other specified diseases of gallbladder; E11.649 Type 2 diabetes mellitus with hypoglycemia without coma; E87.6 Hypokalemia; E86.0 Dehydration; F32.9 Major depressive disorder, single episode, unspecified; I34.0 Nonrheumatic mitral (valve) insufficiency; G89.29 Other chronic pain; I50.9 Heart failure, unspecified; D63.8 Anemia in other chronic diseases classified elsewhere; E83.51 Hypocalcemia; K31.84 Gastroparesis; I95.9 Hypotension, unspecified; J45.909 Unspecified asthma, uncomplicated; N28.1 Cyst of kidney, acquired; Z82.49 Family history of ischemic heart disease and other diseases of the circulatory system; Z88.1 Allergy status to other antibiotic agents; Z90.710 Acquired absence of both cervix and uterus; Z86.19 Personal history of other infectious and parasitic diseases
CPT/HCPCS: 36415; 71010; 76705; 78264; 80048; 80053; 81001; 82270; 82306; 82570; 82784; 82962; 83036; 83516; 83690; 83735; 83880; 83970; 84156; 84300; 84443; 84484; 85014; 85018; 85025; 85610; 86255; 87040; 87045; 87493; 87899; 93005; 93970; 96372; 96374; 96375; 97110; 97116; 97163; 97530; C9113; J0696; J1815; J2001; J2405; J3490

== ENCOUNTER 2017-04-04 16:44 | Emergency (ER) | payer OTHER ==
[~2017-04-04] VITALS: Ht 157.5 cm; Wt 51.3 kg
[~2017-04-04 16:44] MED LIST changes: -AMLO10TA2; -ATORVASTATIN TAB 10MG; +BELLELX2 PO; -BENA40TA7; -CLON0.1T PO; +FER325T PO; -FURO20TA3 OR; -HYDR25TA4 PO; -METO-159; +MULTTAB99 PO
[2017-04-04] MEDS ORDERED: SODIUM CHLORIDE 0.9% 1,000 ML IV ONE (19:45)
[2017-04-04 20:45] LABS: Basophils # (auto) 0 uL; Basophils % (auto) 0.2 % (0.0-2.0); CONDITION Y; Eosinophils # (auto) 0 uL; Hematocrit 25.8 % (36.0-46.0); Hemoglobin 8.6 g/dL (12.2-16.2); Lymphocytes # (auto) 0.7 uL; Lymphocytes % (auto) 16.2 % (10.0-50.0); Mean Corpuscular Hemoglobin 29.4 pg (28.0-32.0); Mean Corpuscular Hgb Conc. 33.5 g/dL (32.0-36.0); Mean Corpuscular Volume 87.6 fL (80.0-100.0); Mean Platelet Volume 7.6 fL (7.4-10.4); Monocytes # (auto) 0.2 uL; Monocytes % (auto) 5.1 % (0.0-12.0); Neutrophils # (auto) 3.2 uL; Neutrophils % (auto) 78.5 % (37.0-80.0); Platelet Count (auto) 314 10^3/uL (140-450); Red Cell Distribution Width 16.3 % (11.6-16.0)
[2017-04-04 21:10] LABS: BUN/Creatinine Ratio 16.7; Calcium 7.4 mg/dL (8.5-10.1); Potassium 4.8 mmol/L (3.5-5.1)
[2017-04-04 21:13] LABS: Bilirubin, Total 0.6 mg/dL (0.2-1.0); Total Protein 4.8 g/dL (6.4-8.2)
[2017-04-04 21:45] VITALS: BP 109/60
== END 2017-04-04 21:59 | disposition home or self-care (01) ==
LOC: ER 16:46 → EDUNIT# 16:46 → ER 21:59
DX: I95.9 Hypotension, unspecified (principal); E78.5 Hyperlipidemia, unspecified; I13.0 Hypertensive heart and chronic kidney disease with heart failure and stage 1 through stage 4 chronic kidney disease, or unspecified chronic kidney disease; E11.22 Type 2 diabetes mellitus with diabetic chronic kidney disease; N18.9 Chronic kidney disease, unspecified; I50.9 Heart failure, unspecified; D64.9 Anemia, unspecified; J45.909 Unspecified asthma, uncomplicated; Z90.89 Acquired absence of other organs; Z90.710 Acquired absence of both cervix and uterus
CPT/HCPCS: 36415; 71020; 80053; 83605; 85025; 93005; 93971; 96360; 99285; J7030

== ENCOUNTER 2017-06-01 02:12 | Inpatient (IN) | payer OTHER ==
[~2017-06-01] VITALS: Ht 167.6 cm; Wt 44.0 kg
[~2017-06-01 02:12] MED LIST changes: -ASPI-231 OR; -LEV50T PO; +LEVO112T4 PO; +MET500T PO; -MULTTAB99 PO; -PANT40T PO; +SACC250C PO
[2017-06-01 03:01] LABS: Basophils # (auto) 0 uL; Basophils % (auto) 0.1 % (0.0-2.0); Eosinophils # (auto) 0 uL; Hematocrit 29.2 % (36.0-46.0); Hemoglobin 10.1 g/dL (12.2-16.2); Lymphocytes # (auto) 0.9 uL; Lymphocytes % (auto) 18.7 % (10.0-50.0); Mean Corpuscular Hemoglobin 31.9 pg (28.0-32.0); Mean Corpuscular Hgb Conc. 34.7 g/dL (32.0-36.0); Mean Corpuscular Volume 91.8 fL (80.0-100.0); Mean Platelet Volume 6.8 fL (6.9-10.8); Monocytes # (auto) 0.3 uL; Monocytes % (auto) 6.4 % (0.0-12.0); Neutrophils # (auto) 3.5 uL; Neutrophils % (auto) 74.8 % (37.0-80.0); Nucleated Red Blood Cells % 0.1 %; Platelet Count (auto) 368 10^3/uL (140-450); Red Cell Distribution Width 16.9 % (11.8-14.3); White Blood Cell 4.7 10^3/uL (4.4-10.8)
[2017-06-01 03:21] LABS: Albumin 2.5 g/dL (3.4-5.0); Alkaline Phosphatase 137 U/L (45-117); Amylase 20 U/L (25-115); Anion Gap 14 (5-15); Aspartate Aminotransferase 18 U/L (15-37); Bilirubin, Total 0.8 mg/dL (0.2-1.0); Blood Urea Nitrogen 27 mg/dL (7-18); Calcium 7.7 mg/dL (8.5-10.1); Carbon Dioxide 21 mmol/L (21-32); Chloride 102 mmol/L (98-107); GFR African American 46 mL/min; GFR Non-African American 38 mL/min; Glucose 113 mg/dL (74-106); Magnesium 2.2 mg/dL (1.6-2.6); Sodium 137 mmol/L (136-145); Total Protein 5.4 g/dL (6.4-8.2)
[2017-06-01 03:56] LABS: Potassium 2.9 mmol/L (3.5-5.1)
[2017-06-01] MEDS ORDERED: POTASSIUM CHL 20MEQ/100ML 100 ML IV ONE (04:15)
[2017-06-01] MEDS ORDERED: SODIUM CHLORIDE 0.9% 1,000 ML IV ONE (04:15)
[2017-06-01] MEDS ORDERED: MORPHINE SULF INJ 2 MG/ML SYRINGE 1ML IV ONE (04:45)
[2017-06-01] MEDS ORDERED: ONDANSETRON HCL 4 MG/2 ML VIAL IV ONE (04:45)
[2017-06-01 05:40] LABS: Urine Bilirubin Negative (Negative); Urine Blood 2+ /uL (Negative); Urine Color Yellow (Yellow); Urine Glucose Normal (Normal); Urine Ketone Negative (Negative); Urine Mucus FEW (None Seen); Urine Nitrite Negative (Negative); Urine RBC 33 /hpf (0 - 4); Urine Urobilinogen Normal (Negative)
[2017-06-01] MEDS ORDERED: CLINDAMYCIN 600MG IV 50 ML IV ONE (06:15)
[2017-06-01] MEDS ORDERED: cefTRIAXone 1GM/50ML D5W 50 ML IV ONE (06:15)
[2017-06-01] MEDS ORDERED: SODIUM CHLORIDE 0.9% 1,000 ML IV SCH ×2 (06:43→11:00)
[2017-06-01] MEDS ORDERED: FAMOTIDINE (10MG/ML) 2ML VL IV SCH (06:45)
[2017-06-01] MEDS ORDERED: ONDANSETRON HCL 4 MG/2 ML VIAL IV PRN (06:45)
[2017-06-01] MEDS: LEVOTHYROXINE SODIUM 112 MCG TAB PO SCH (07:00)
[2017-06-01] MEDS ORDERED: LEVOFLOXACIN 500MG 100 ML IV ONE (07:00)
[2017-06-01] MEDS: FERROUS SULFATE 325 MG TAB PO SCH ×2 (08:00→18:00)
[2017-06-01] MEDS: MORPHINE SULF INJ 2 MG/ML SYRINGE 1ML IV PRN (08:07)
[2017-06-01] MEDS ORDERED: LEVOFLOXACIN 500MG 100 ML IV SCH (10:00)
[2017-06-01] MEDS ORDERED: LEVOFLOXACIN 250MG 50 ML IV SCH (10:00)
[2017-06-01 11:00] VITALS: BP 142/91
[2017-06-01] MEDS ORDERED: POTASSIUM CHL 10% (20 MEQ/15ML) 15ml ORAL SOLN GT ONE (11:30)
[2017-06-01] MEDS: SODIUM CHLORIDE 0.9% 1,000 ML IV SCH (11:55)
[2017-06-01] MEDS: metroNIDAZOLE 500MG/100ML 100 ML IV SCH ×2 (11:55→18:07)
[2017-06-01] MEDS: ENOXAPARIN SOD 30 MG/0.3 ML SYRINGE SC SCH (11:55)
[2017-06-01] MEDS: FAMOTIDINE (10MG/ML) 2ML VL IV SCH (11:55)
[2017-06-01 17:00] VITALS: BP 118/77
[2017-06-01 20:00] VITALS: BP 100/68
[2017-06-01 22:00] VITALS: BP 100/68
[2017-06-02] MEDS: SODIUM CHLORIDE 0.9% 1,000 ML IV SCH (01:31)
[2017-06-02 05:00] VITALS: BP 109/68
[2017-06-02] MEDS: metroNIDAZOLE 500MG/100ML 100 ML IV SCH ×4 (05:59→20:56)
[2017-06-02] MEDS: MORPHINE SULF INJ 2 MG/ML SYRINGE 1ML IV PRN ×3 (06:00→23:29)
[2017-06-02] MEDS: LEVOTHYROXINE SODIUM 112 MCG TAB PO SCH (06:00)
[2017-06-02 06:11] LABS: Basophils # (auto) 0 uL; Eosinophils # (auto) 0 uL; Hematocrit 27.8 % (36.0-46.0); Hemoglobin 9.8 g/dL (12.2-16.2); Lymphocytes # (auto) 0.6 uL; Mean Corpuscular Hemoglobin 32.4 pg (28.0-32.0); Mean Corpuscular Hgb Conc. 35.2 g/dL (32.0-36.0); Mean Corpuscular Volume 92.2 fL (80.0-100.0); Mean Platelet Volume 6.9 fL (6.9-10.8); Monocytes # (auto) 0.3 uL; Monocytes % (auto) 7.6 % (0.0-12.0); Neutrophils # (auto) 3.5 uL; Neutrophils % (auto) 79.4 % (37.0-80.0); Nucleated Red Blood Cells % 0.1 %; Platelet Count (auto) 328 10^3/uL (140-450); Red Cell Distribution Width 16.9 % (11.8-14.3); White Blood Cell 4.4 10^3/uL (4.4-10.8)
[2017-06-02 06:39] LABS: Albumin 2.3 g/dL (3.4-5.0); BUN/Creatinine Ratio 24.3; Calcium 7.4 mg/dL (8.5-10.1); Potassium 3.6 mmol/L (3.5-5.1)
[2017-06-02 06:42] LABS: Bilirubin, Total 0.8 mg/dL (0.2-1.0)
[2017-06-02 08:00] VITALS: BP 89/58
[2017-06-02] MEDS: BOOST 8 ounces PO SCH ×3 (08:00→18:00)
[2017-06-02] MEDS: FERROUS SULFATE 325 MG TAB PO SCH ×2 (08:00→18:00)
[2017-06-02 09:00] VITALS: BP 89/58
[2017-06-02] MEDS: FAMOTIDINE (10MG/ML) 2ML VL IV SCH (09:19)
[2017-06-02] MEDS: cefTRIAXone 1GM/50ML D5W 50 ML IV SCH (09:19)
[2017-06-02] MEDS: ENOXAPARIN SOD 30 MG/0.3 ML SYRINGE SC SCH (09:20)
[2017-06-02 13:00] VITALS: BP 99/61
[2017-06-02] MEDS ORDERED: POTASSIUM CHL 10% (20 MEQ/15ML) 15ml ORAL SOLN GT ONE (14:15)
[2017-06-02] MEDS ORDERED: MAGNESIUM SULFATE 1GM/100ML 100 ML IV ONE (14:30)
[2017-06-02] MEDS ORDERED: Fibersource Hn 1 Liter GT SCH (14:30)
[2017-06-02] MEDS: SOD CHL 0.9%/ KCL 40MEQ 1,000 ML IV SCH (14:44)
[2017-06-02 17:00] VITALS: BP 107/65
[2017-06-02 21:29] VITALS: BP 110/68
[2017-06-03] VITALS (7 sets, daily range): BP systolic 78–107; BP diastolic 44–73
[2017-06-03] MEDS: MORPHINE SULF INJ 2 MG/ML SYRINGE 1ML IV PRN ×2 (03:18→10:25)
[2017-06-03] MEDS: metroNIDAZOLE 500MG/100ML 100 ML IV SCH ×3 (03:19→20:19)
[2017-06-03 06:29] LABS: Basophils # (auto) 0 uL; Basophils % (auto) 0.1 % (0.0-2.0); Eosinophils # (auto) 0 uL; Hematocrit 28.3 % (36.0-46.0); Lymphocytes # (auto) 0.5 uL; Lymphocytes % (auto) 7.8 % (10.0-50.0); Mean Corpuscular Hemoglobin 32.8 pg (28.0-32.0); Mean Corpuscular Hgb Conc. 35.2 g/dL (32.0-36.0); Mean Corpuscular Volume 93.2 fL (80.0-100.0); Mean Platelet Volume 7.4 fL (6.9-10.8); Monocytes # (auto) 0.4 uL; Neutrophils # (auto) 5.5 uL; Neutrophils % (auto) 86.1 % (37.0-80.0); Nucleated Red Blood Cells % 0.2 %; Platelet Count (auto) 336 10^3/uL (140-450); Red Cell Distribution Width 17.5 % (11.8-14.3); White Blood Cell 6.4 10^3/uL (4.4-10.8)
[2017-06-03] MEDS: LEVOTHYROXINE SODIUM 112 MCG TAB PO SCH (06:52)
[2017-06-03 06:58] LABS: Albumin 2.4 g/dL (3.4-5.0); Calcium 7.3 mg/dL (8.5-10.1); Potassium 4.9 mmol/L (3.5-5.1)
[2017-06-03 07:01] LABS: BUN/Creatinine Ratio 23.7
[2017-06-03 07:04] LABS: Bilirubin, Total 0.7 mg/dL (0.2-1.0); Total Protein 5.1 g/dL (6.4-8.2)
[2017-06-03] MEDS: BOOST 8 ounces PO SCH ×3 (08:00→18:00)
[2017-06-03] MEDS: ENOXAPARIN SOD 30 MG/0.3 ML SYRINGE SC SCH (10:24)
[2017-06-03] MEDS: FAMOTIDINE (10MG/ML) 2ML VL IV SCH (10:24)
[2017-06-03] MEDS: cefTRIAXone 1GM/50ML D5W 50 ML IV SCH (10:24)
[2017-06-03] MEDS: FERROUS SULFATE 325 MG TAB PO SCH ×2 (10:24→18:47)
[2017-06-03] MEDS: SOD CHL 0.9%/ KCL 40MEQ 1,000 ML IV SCH (10:25)
[2017-06-03] MEDS ORDERED: ASPirin-EC 81 mg tab PO ONE (17:30)
[2017-06-03] MEDS ORDERED: SODIUM CHLORIDE 0.9% 1,000 ML IV SCH (17:30)
[2017-06-03] MEDS ORDERED: ACETAMINOPHEN 325 MG TAB PO PRN (18:45)
[2017-06-03] MEDS ORDERED: FUROSEMIDE 40 MG/4 ML VIAL IV ONE (20:15)
[2017-06-03] MEDS: HYDROmorphone HCL 2 MG/ML VL IV PRN (20:19)
[2017-06-04 05:00] VITALS: BP 92/62
[2017-06-04] MEDS: metroNIDAZOLE 500MG/100ML 100 ML IV SCH ×3 (05:30→20:15)
[2017-06-04] MEDS: HYDROmorphone HCL 2 MG/ML VL IV PRN ×4 (05:31→20:16)
[2017-06-04] MEDS: LEVOTHYROXINE SODIUM 112 MCG TAB PO SCH (07:30)
[2017-06-04] MEDS: BOOST 8 ounces PO SCH ×3 (08:00→17:27)
[2017-06-04 09:00] VITALS: BP 89/56
[2017-06-04] MEDS ORDERED: CLOPIDOGREL 300 MG TAB PO ONE (09:00)
[2017-06-04] MEDS ORDERED: DIGOXIN (250MCG/ML) 2 ML AMPULE IV ONE (09:00)
[2017-06-04] MEDS: cefTRIAXone 1GM/50ML D5W 50 ML IV SCH (09:44)
[2017-06-04] MEDS: FAMOTIDINE (10MG/ML) 2ML VL IV SCH (09:45)
[2017-06-04] MEDS: ENOXAPARIN SOD 30 MG/0.3 ML SYRINGE SC SCH (09:45)
[2017-06-04] MEDS: FERROUS SULFATE 325 MG TAB PO SCH ×2 (09:46→17:27)
[2017-06-04] MEDS: ASPirin-EC 81 mg tab PO SCH (09:46)
[2017-06-04] MEDS ORDERED: FUROSEMIDE 40 MG/4 ML VIAL IV SCH (10:00)
[2017-06-04 12:00] VITALS: BP 96/65
[2017-06-04 13:00] VITALS: BP 96/65
[2017-06-04] MEDS: SODIUM CHLORIDE 0.9% 1,000 ML IV SCH (13:10)
[2017-06-04 17:00] VITALS: BP 96/65
[2017-06-04 22:00] VITALS: BP 97/66
[2017-06-05] MEDS: HYDROmorphone HCL 2 MG/ML VL IV PRN ×4 (03:02→15:49)
[2017-06-05] MEDS: metroNIDAZOLE 500MG/100ML 100 ML IV SCH (04:43)
[2017-06-05 05:00] VITALS: BP 100/60
[2017-06-05] MEDS: SODIUM CHLORIDE 0.9% 1,000 ML IV SCH (06:21)
[2017-06-05] MEDS: LEVOTHYROXINE SODIUM 112 MCG TAB PO SCH (06:22)
[2017-06-05 06:57] LABS: Basophils # (auto) 0 uL; Basophils % (auto) 0.1 % (0.0-2.0); Eosinophils # (auto) 0 uL; Eosinophils % (auto) 0.1 % (0.0-7.0); Hematocrit 25.7 % (36.0-46.0); Hemoglobin 8.8 g/dL (12.2-16.2); Lymphocytes # (auto) 0.5 uL; Lymphocytes % (auto) 6.9 % (10.0-50.0); Mean Corpuscular Hemoglobin 33.3 pg (28.0-32.0); Mean Corpuscular Hgb Conc. 34.2 g/dL (32.0-36.0); Mean Corpuscular Volume 97.2 fL (80.0-100.0); Mean Platelet Volume 7.5 fL (6.9-10.8); Monocytes # (auto) 0.4 uL; Monocytes % (auto) 5.6 % (0.0-12.0); Neutrophils # (auto) 6.4 uL; Neutrophils % (auto) 87.3 % (37.0-80.0); Nucleated Red Blood Cells % 0.1 %; Platelet Count (auto) 270 10^3/uL (140-450); Red Cell Distribution Width 17.9 % (11.8-14.3); White Blood Cell 7.3 10^3/uL (4.4-10.8)
[2017-06-05 07:26] LABS: BUN/Creatinine Ratio 31.1; Calcium 6.9 mg/dL (8.5-10.1); Magnesium 2.2 mg/dL (1.6-2.6)
[2017-06-05 07:59] LABS: Temperature: 21.9 C (20.0-25.0)
[2017-06-05 09:02] VITALS: BP 94/66
[2017-06-05] MEDS: ASPirin-EC 81 mg tab PO SCH (09:41)
[2017-06-05] MEDS: ENOXAPARIN SOD 30 MG/0.3 ML SYRINGE SC SCH (09:41)
[2017-06-05] MEDS: FERROUS SULFATE 325 MG TAB PO SCH (09:41)
[2017-06-05] MEDS ORDERED: ASP81EC PO (09:42)
[2017-06-05] MEDS: FAMOTIDINE (10MG/ML) 2ML VL IV SCH (09:42)
[2017-06-05] MEDS ORDERED: CLOPIDOGREL BISULFATE 75 MG TAB PO SCH (10:00)
[2017-06-05 12:20] VITALS: BP 94/66
[2017-06-05] MEDS ORDERED: CEFD300C2 PO (12:45)
[2017-06-05 12:53] VITALS: BP 102/64
[2017-06-05] MEDS ORDERED: HYDROcodone-ACET 5/325MG TAB PO ONE (13:45)
[2017-06-05] MEDS ORDERED: ATOR10TA52 PO (15:12)
== END 2017-06-05 17:00 | disposition hospice, home (50) | DRG 280 ==
LOC: EDBD 02:12 → ER 02:14 → OVERFLOW 02:15 → WEST WING 10:57 → TELE-WESTW 11:50 → WEST WING 06-02 23:19 → TELE-WESTW 06-03 15:07
PROVIDERS: ADMIT Family Medicine; ATTEND Internal Medicine
DX: I21.4 Non-ST elevation (NSTEMI) myocardial infarction (principal); N17.0 Acute kidney failure with tubular necrosis; E43 Unspecified severe protein-calorie malnutrition; G92 Toxic encephalopathy; I47.2 Ventricular tachycardia; L89.103 Pressure ulcer of unspecified part of back, stage 3; E86.0 Dehydration; E11.22 Type 2 diabetes mellitus with diabetic chronic kidney disease; I13.0 Hypertensive heart and chronic kidney disease with heart failure and stage 1 through stage 4 chronic kidney disease, or unspecified chronic kidney disease; N39.0 Urinary tract infection, site not specified; I50.9 Heart failure, unspecified; E87.6 Hypokalemia; J45.909 Unspecified asthma, uncomplicated; E78.00 Pure hypercholesterolemia, unspecified; N18.9 Chronic kidney disease, unspecified; Z66 Do not resuscitate; R62.7 Adult failure to thrive; Z51.5 Encounter for palliative care; B96.5 Pseudomonas (aeruginosa) (mallei) (pseudomallei) as the cause of diseases classified elsewhere; Z93.1 Gastrostomy status; Z82.49 Family history of ischemic heart disease and other diseases of the circulatory system; Z88.8 Allergy status to other drugs, medicaments and biological substances; Z88.1 Allergy status to other antibiotic agents
CPT/HCPCS: 36415; 51702; 71010; 74176; 80048; 80053; 81001; 82150; 83690; 83735; 83880; 84484; 85025; 87040; 87086; 87088; 87186; 92610; 93005; 96361; 96365; 96375; J0696; J1956; J2405; J3490